=== PATIENT | male | born 1955 | race Caucasian/White ===

== ENCOUNTER → 2021-03-12 13:49 | Outpatient (CLI) | payer SELFPAY | PROVIDERS: PCP Family Medicine; Referring Provider Family Medicine; Visit Provider Family Medicine | DX: R55 Syncope and collapse (principal) | CPT/HCPCS: 93225; 93226 ==

== ENCOUNTER → 2021-04-07 13:51 | Outpatient (CLI) | payer SELFPAY ==
--- NOTE | 2021-04-07 13:55 | ART_ITS ---
Reason For Study: Leg pain Procedure A bilateral lower extremity continuous wave Doppler with analog waveform analysis,segmental pressures,and ankle brachial indexes without exercise. Left Segmental Pressures Left brachial= 138mmHg. Left posterior tibial artery = >254mmHg. Left dorsalis pedis artery = >254mmHg. Left digit = 141 mmHg. The left dorsalis pedis waveforms are triphasic. The left posterior tibial artery waveforms are triphasic. Right Segmental Pressures Right brachial= 139mmHg. Right posterior tibial artery = >254mmHg. Right dorsalis pedis artery = 116mmHg. The right dorsalis pedis waveforms are triphasic. The right posterior tibial artery waveforms are triphasic. Indices The right ankle brachial index by the dorsalis pedis is NC. The right ankle brachial index by the posterior tibial artery is NC. The right digital-brachial index is 0.83. The left ankle brachial index by the dorsalis pedis is NC. The left ankle brachial index by the posterior tibial artery is NC. The left digital-brachial index is 1.01. VL/Lower Ext Art Exam w/o Exercis Interpretation Summary Triphasic Doppler waveforms are noted at ankle level bilaterally. Pulse-volume recordings appear satisfactory bilaterally. Resting ankle-brachial indices could not be determine d due to the non- compressibility of the vasculature at ankle level bilaterally. Digital-brachial indices are normal bilaterally. There is evidence of arterial calcification at ankle level bilaterally. There i s no evidence of significant arterial occlusive disease in the lower extremities bilaterally. Ordering Physician: Dave Huffman Referring Physician: Dave Huffman Performed By: Bebe Matthew RVT
== END ==
PROVIDERS: PCP Family Medicine; Referring Provider Family Medicine; Visit Provider Family Medicine
DX: M79.606 Pain in leg, unspecified (principal)
CPT/HCPCS: 93923

== ENCOUNTER → 2021-04-22 10:53 | Outpatient (CLI) | payer SELFPAY ==
--- NOTE | 2021-04-22 11:05 | RAD_ITS ---
STUDY: X-RAY - LUMBAR SPINE REASON FOR EXAM: Male, 65 years old. Low back and leg pain TECHNIQUE: 5 view(s) of the lumbar spine were obtained. COMPARISON: None FINDINGS: Normal lumbar lordosis. There is a mild levoscoliosis of the lumbar spine. There is a normal alignment of the vertebrae. There is a bilateral pars defect without spondylolisthesis at L5/S1 There is diffuse demineralization with multi-level endplate spondylosis. There is multi-level degenerative disc disease with multi-level disc space narrowing. There is no demonstrated fracture. There is atherosclerotic calcification of the abdominal aorta without a demonstrated aneurysm. Bilateral hip replacements free of complication RAD/L/S Spine Min 4 Views IMPRESSION: Degenerative changes of the spine, as detailed above. No demonstrated fracture Levoscoliosis Bilateral pars defect without spondylolisthesis at L5/S1 Electronically Signed: Heber Hammer MD at 16:58 EDT , Service support ,
== END ==
PROVIDERS: PCP Family Medicine; Referring Provider Family Medicine; Visit Provider Family Medicine
DX: M79.606 Pain in leg, unspecified (principal)
CPT/HCPCS: 72110

== ENCOUNTER 2021-06-18 10:41 | Emergency (ER) | payer MEDICARE, OTHER, SELFPAY ==
[2021-06-18 10:41] VITALS: BP 170/103; PULSE 93; RESP 16; TEMP 36.2; O2SAT 98; BMI 34.9
--- NOTE | 2021-06-18 10:58 | EX.ED.DYSGE1 ---
HPI History of Present Illness Chief Complaint: Marie C/O Informant: patient Narrative Narrative: 66-year-old male presenting requesting Marie catheter change. Patient states he has had leaking around his catheter for the past 1 week. He states that his urine has looked cloudy. He denies blood in his urine. He states he has had this chronic indwelling Marie catheter for several months. It typically is changed once a month. He denies other complaints. Prior similar symptoms: Yes Recent Illness/Hospitalization: No PFSH PFSH Medical History (Updated 06/18/21 @ 13:[address] Stephanie Pressley MD) Hypertension Home Medications cephalexin 500 mg PO Q6H 7 Days #28 cap 06/18/21 [Rx Last Taken Unknown] Allergy/AdvReac Type Severity Reaction Status Date / Time No Known Allergies Allergy Verified 06/18/21 10:41 Social History Smoking Status: Unknown if ever smoked ROS ROS ED Constitutional Constitutional ED: Denies fever(s) Eyes Eyes: Denies change in vision ENT ENT ED: Denies rhinorrhea or sore throat Cardiovascular Cardiovascular: Denies chest pain or palpitations Respiratory/Chest Respiratory/Chest: Denies cough or dyspnea Gastrointestinal Gastrointestinal: Denies abdominal pain, diarrhea, nausea or vomiting Genitourinary Genitourinary ED: Reports other Details: Urine leaking around Marie catheter ; Denies dysuria Musculoskeletal Musculoskeletal: Denies myalgias Integumentary Denies rash Neurologic Neurologic: Denies headache(s) EXAM Physical Exam Const Vital Signs: 06/18/21 10:41 06/18/21 13:24 Temperature 97.1 F L Temperature Source Temporal Pulse Rate 93 67 Respiratory Rate 16 16 Blood Pressure 170/103 H 141/82 H Blood Pressure Mean 125 101 Pulse Ox 98 100 Oxygen Delivery Method Room Air Room Air Positive well nourished and well developed General Appearance ED: well developed HEENT Reports normocephalic and head/scalp atraumatic Eyes PERRL and EOMs intact bilaterally Neck supple General: Negative for tenderness Chest Wall inspection of chest normal Resp normal respiratory effort and clear to auscultation bilaterally Cardio regular rate and regular rhythm GI non-tender and non-distended Palpation: soft; Negative for guarding or rebound tenderness present no CVA tenderness Extremity normal to inspection Neuro oriented x3 Sensorium / Orientation: alert Psych mental status grossly normal MDM MDM MDM Narrative Medical decision making narrative: Urinalysis shows 25-50 white blood cells, 25-50 red blood cells. Urine culture was sent. Marie catheter was changed. He is advised to follow-up with his urologist. Advised to return to ED for worsening complaints. Lab Data Attestation: I reviewed the patient's lab results. Labs: Laboratory Results - last 24 hr 06/18/21 12:15 Urine Color Yellow Urine Clarity Sl. Cloudy Urine pH 6.0 Ur Specific [place] 1.020 Urine Protein 100 H Urine Glucose (UA) Normal Urine Ketones 5 H Urine Occult Blood 250 H Urine Nitrite Positive H Urine Bilirubin Negative Urine Urobilinogen Normal Ur Leukocyte Esterase 500 H Urine RBC 25-50 SEEN Urine WBC 25-50 SEEN Ur Squamous Epith Cells 0-5 SEEN Urine Bacteria 2+ Urine Mucus 1+ Discharge Plan Triage Chief Complaint: Marie C/O ED Provider: Stephanie Pressley Dx/Rx/DC Orders Clinical Impression: UTI (urinary tract infection), Urinary retention Prescriptions: New cephalexin 500 mg capsule 500 mg PO Q6H 7 Days Qty: 28 RF: 0 Primary Care Provider: Dave Huffman Referrals: Dave Huffman MD [Primary Care Provider] - Disposition Disposition: Home, Self Care
--- NOTE | 2021-06-18 11:29 | ED.RN ---
pt states i have no idea why [employer] put this cath in me. this rn explained to the pt that he needs to f/u with urology or at least his family dr regarding the cath.
[2021-06-18 12:54] LABS: Color, Urine Yellow (Yellow); Glucose, Dipstick Normal (Normal); Ketone-Dipstick 5 mg/dl (Negative); Leukocyte Esterase-Dipstick 500 /ul (Negative); Nitrite-Dipstick Positive (Negative); Occult Blood-Urine 250 /ul (Negative); Protein-Dipstick 100 mg/dl (Negative); Urine Bilirubin Dipstick Negative (Negative); Urine Clarity Sl. Cloudy (Clear); Urine Urobilinogen Normal (Normal)
[2021-06-18 13:00] LABS: Bacteria 2+ /hpf (None Seen); Mucous, Urine 1+ /hpf (<or=2+); Red Blood Cells-Urine 25-50 SEEN /hpf (0-5); Squamous Epithelial Cells - UA 0-5 SEEN /hpf (0-5); White Blood Cells 25-50 SEEN /hpf (0-5)
[2021-06-18 13:24] VITALS: BP 141/82; PULSE 67; RESP 16; O2SAT 100
[2021-06-18] MEDS: Cephalexin 250 MG Capsule 500 MG PO (13:34)
== END 2021-06-18 13:46 | disposition home or self-care (01) ==
PROVIDERS: Emergency Provider Emergency Medicine; PCP Family Medicine
DX: T83.031A Leakage of indwelling urethral catheter, initial encounter (principal); Y84.6 Urinary catheterization as the cause of abnormal reaction of the patient, or of later complication, without mention of misadventure at the time of the procedure; Y92.9 Unspecified place or not applicable; N39.0 Urinary tract infection, site not specified; R33.9 Retention of urine, unspecified; I10 Essential (primary) hypertension
CPT/HCPCS: 81001; 87077; 87086; 87088; 87186; 99282; A4216

== ENCOUNTER 2021-07-17 13:24 | Emergency (ER) | payer MEDICARE, OTHER, SELFPAY ==
[2021-07-17 13:25] VITALS: BP 125/62; PULSE 67; RESP 16; TEMP 36.4; O2SAT 98; BMI 31.9
--- NOTE | 2021-07-17 14:48 | EX.ED.GUMALE ---
HPI History of Present Illness Chief Complaint: Complaint Informant: patient Pain Onset: Days Narrative Narrative: Patient presents secondary to urinary incontinence. He had a Marie catheter in place from March until last July 12. He was seen by Dr. Cutler's office and it was removed. He states since that time he has had urinary incontinence and just dribbles on himself. He has an appointment to be seen again this Monday but states he was tired of it so came to the emergency room. He has no pain with urination. [facility] Medical History Hypertension Urinary retention Home Medications hydrochlorothiazide 25 mg PO DAILY 07/17/21 [History Last Taken Unknown] metoprolol succinate 100 mg PO DAILY 07/17/21 [History Last Taken Unknown] sulfamethoxazole-trimethoprim [Bactrim DS] 1 tab PO BID #5 tab 07/17/21 [Rx Last Taken Unknown] tamsulosin 0.4 mg PO DAILY 07/17/21 [History Last Taken Unknown] trazodone 50 mg PO DAILY 07/17/21 [History Last Taken Unknown] Allergy/AdvReac Type Severity Reaction Status Date / Time No Known Allergies Allergy Verified 07/17/21 13:27 Surgical History History of hip surgery History of surgical removal of pituitary gland Social History Smoking Status: Never smoker ROS ROS ED Constitutional Constitutional ED: Denies chills or fever(s) Eyes Eyes: Denies change in vision ENT ENT ED: Denies sore throat Cardiovascular Cardiovascular: Denies chest pain Respiratory/Chest Respiratory/Chest: Denies cough or dyspnea Gastrointestinal Gastrointestinal: Denies abdominal pain, diarrhea, nausea or vomiting Genitourinary Genitourinary ED: Reports other Details: Urinary incontinence ; Denies dysuria Musculoskeletal Musculoskeletal: Denies back pain Integumentary Denies rash Neurologic Neurologic: Denies headache(s) or weakness Allergic/Immunologic Allergic/Immunologic ED: Denies urticaria EXAM Physical Exam Const Vital Signs: 07/17/21 13:25 Temperature 97.5 F L Temperature Source Temporal Pulse Rate 67 Respiratory Rate 16 Blood Pressure 125/62 H Blood Pressure Mean 83 Pulse Ox 98 Oxygen Delivery Method Room Air Positive well nourished and well developed General Appearance ED: well developed Eyes EOMs intact bilaterally Neck supple Resp normal respiratory effort and clear to auscultation bilaterally Cardio regular rate and regular rhythm GI non-tender Auscultation: hypoactive bowel sounds Palpation: soft Extremity normal to inspection Neuro oriented x3 Sensorium / Orientation: alert Psych mental status grossly normal Skin Rashes: no rashes MDM MDM MDM Narrative Medical decision making narrative: Urinalysis ordered. I asked nursing staff to get bladder scan. Apparently was able to urinate 100 cc and bladder scan only picked up 218 cc. It was not a consistent reading on the scanner. Lab Data Attestation: I reviewed the patient's lab results. Labs: Laboratory Results - last 24 hr 07/17/21 15:40 Urine Color Yellow Urine Clarity Sl. Cloudy Urine pH 6.0 Ur Specific [place] 1.015 Urine Protein 30 H Urine Glucose (UA) Normal Urine Ketones Negative Urine Occult Blood 25 H Urine Nitrite Positive H Urine Bilirubin Negative Urine Urobilinogen Normal Ur Leukocyte Esterase 500 H Urine RBC 0 SEEN Urine WBC 5-10 SEEN Ur Squamous Epith Cells 0 SEEN Urine Bacteria 3+ Urine Mucus 0 SEEN Treatment and Re-Evaluation Comments:: Urinalysis does show significant infection. Urine culture sent patient given a dose of Bactrim. Marie catheter was placed. Patient only had approximate 150 cc drained out. Catheter will be removed. I believe his incontinence is likely secondary to the infection. He will be treated with 3 days of Bactrim. He already has appointment scheduled with urology in 2 days. Discharge Plan Triage Chief Complaint: Complaint ED Provider: Suzie Delgado Dx/Rx/DC Orders Instructions: ED Urinary Tract Infections in Men Prescriptions: New sulfamethoxazole-trimethoprim [Bactrim DS] 800-160 mg tablet 1 tab PO BID Qty: 5 RF: 0 No Action trazodone 50 mg tablet 50 mg PO DAILY RF: 0 metoprolol succinate 100 mg tablet extended release 24 hr 100 mg PO DAILY RF: 0 tamsulosin 0.4 mg capsule 0.4 mg PO DAILY RF: 0 hydrochlorothiazide 25 mg tablet 25 mg PO DAILY RF: 0 Primary Care Provider: Dave Huffman Referrals: Prince Cutler MD [STAFF PHYSICIAN] - Keep Cinthia appointment Brown,Dave, MD [Primary Care Provider] - Disposition Disposition: Home, Self Care
[2021-07-17 15:44] LABS: Mucous, Urine 0 SEEN /hpf (<or=2+); Red Blood Cells-Urine 0 SEEN /hpf (0-5); Squamous Epithelial Cells - UA 0 SEEN /hpf (0-5)
[2021-07-17 15:46] LABS: Color, Urine Yellow (Yellow); Glucose, Dipstick Normal (Normal); Ketone-Dipstick Negative (Negative); Leukocyte Esterase-Dipstick 500 /ul (Negative); Nitrite-Dipstick Positive (Negative); Occult Blood-Urine 25 /ul (Negative); Protein-Dipstick 30 mg/dl (Negative); Specific Gravity, Urine 1.015 (1.002-1.030); Urine Bilirubin Dipstick Negative (Negative); Urine Clarity Sl. Cloudy (Clear); Urine Urobilinogen Normal (Normal)
[2021-07-17 15:52] LABS: Bacteria 3+ /hpf (None Seen); White Blood Cells 5-10 SEEN /hpf (0-5)
[2021-07-17] MEDS: Smz/Tmp Ds Tablet 1 TABLET PO (16:41)
== END 2021-07-17 17:43 | disposition home or self-care (01) ==
PROVIDERS: Emergency Provider Emergency Medicine; PCP Family Medicine
DX: N39.0 Urinary tract infection, site not specified (principal); I10 Essential (primary) hypertension; Z79.899 Other long term (current) drug therapy
CPT/HCPCS: 51702; 81001; 87077; 87086; 87088; 87186; 99285

== ENCOUNTER → 2021-08-02 | Outpatient (CLI) | payer MEDICARE, OTHER, SELFPAY ==
--- NOTE | 2021-08-02 13:36 | EKG12_ITS ---
Test Reason : PREOP Blood Pressure : / mmHG Vent. Rate : 055 BPM Atrial Rate : 055 BPM P-R Int : 170 ms QRS Dur : 100 ms QT Int : 394 ms P-R-T Axes : 025 001 031 degrees QTc Int : 376 ms Sinus bradycardia Otherwise normal ECG Confirmed by MYA HARRISON, BELEM ([id number]), mapping editor JOSE DAVILA ([id number]) on 08/03/2021 10:07:33 AM Referred By: Darwin Nur Confirmed By:BELEM ROQUE MD
--- NOTE | 2021-08-02 14:32 | RAD_ITS ---
STUDY: X-RAY CHEST REASON FOR EXAM: Male, 66 years old. PREOP TECHNIQUE: PA and lateral views of the chest. COMPARISON: None. FINDINGS: The lungs are clear and expanded. There is no demonstrated pleural abnormality. Normal size heart. Normal mediastinum and yehuda. Normal visualized pulmonary arteries. Normal visualized aortic arch and descending thoracic aorta. There are diffuse degenerative changes of the visualized thoracic spine. Normal visualized ribs, clavicles, and shoulders. There is no demonstrated abnormality of the visualized soft tissue structures of the upper abdomen. RAD/Chest PA and Lateral IMPRESSION: No acute cardiopulmonary process. Electronically Signed: Luis Zavala MD ([place]) at 9:07 EST , Service support ,
[2021-08-02 14:53] LABS: Absolute Lymphocyte Count 0.88 X10^3/uL (0.83-4.51); Absolute Neutrophil Count 2.1 X10^3/uL (2.0-7.7); Basophil# 0.01 X10^3/uL; Basophil% 0.3 % (0-1); Eosinophil# 0.21 X10^3/uL; Hematocrit 41.4 % (40-54); Lymphocyte # 0.88 X10^3/ul (0.83-4.51); Mean Corp Hgb Conc 33.8 g/dL (32-36); Mean Corpuscular Hgb 30.6 pg (27.0-32.0); Mean Corpuscular Volume 90.4 fL (80-94); Monocyte% 8.5 % (0-10); NRBC Flagged by Analyzer 0 % (0-5); Neutrophil # 2.11 X10^3/uL (2.7-7.7); Neutrophil % 59.9 % (47-70); Platelet Count 167 K/mm3 (150-450); RBC Distribution Width CV 13.7 % (11.6-14.6); RBC Distribution Width SD 45.2 fl (35.1-43.9); Red Blood Count 4.58 M/mm3 (4.6-6.2); White Blood Count 3.5 K/mm3 (4.4-11.0)
[2021-08-02 15:24] LABS: Prothrombin Time (Protime)PT. 12.7 SECONDS (11.7-14.9)
[2021-08-02 15:25] LABS: Partial Thromboplast Time 29.9 Seconds (24.1-36.2)
[2021-08-02 15:38] LABS: Anion Gap 7 (5-15); BUN 53 mg/dL (7-18); BUN/Creat Ratio 28.6 RATIO (10-20); Calcium,Total 9.3 mg/dL (8.5-10.1); Chloride 109 mmol/L (98-107); Creatinine, Serum 1.85 mg/dL (0.70-1.30); EST Glomerular Filtration Rate 39 mL/min (>60); Est Glom Filt Rate - Afr Amer 47 mL/min (>60); Glucose 84 mg/dL (74-106); Potassium 3.9 mmol/L (3.5-5.1); Sodium Level 141 mmol/L (136-145)
== END | disposition home or self-care (01) ==
LOC: PAT 08-23 16:59
PROVIDERS: PCP Family Medicine; Referring Provider Orthopaedic Surgery; Visit Provider Orthopaedic Surgery
DX: Z01.812 Encounter for preprocedural laboratory examination (principal); Z01.810 Encounter for preprocedural cardiovascular examination; Z01.811 Encounter for preprocedural respiratory examination
CPT/HCPCS: 36415; 71046; 80048; 85025; 85610; 85730; 93005

== ENCOUNTER → 2021-11-18 10:47 | Outpatient (CLI) | payer MEDICARE, OTHER, SELFPAY | PROVIDERS: PCP Family Medicine | DX: M79.609 Pain in unspecified limb (principal); M51.04 Intervertebral disc disorders with myelopathy, thoracic region; Z20.822 Contact with and (suspected) exposure to COVID-19 | CPT/HCPCS: 87635; C9803; U0003; U0005 ==